=== PATIENT | female | born 1980 ===

== ENCOUNTER 2018-02-05 19:35 | Inpatient (IN) ==
[2018-02-05] MEDS ORDERED: CALCIUM CARBONATE Chewable 500mg TABLET PO PRN (19:47)
[2018-02-05] MEDS ORDERED: CARBOPROST 250 MCG/ML INJECTION IM PRN (19:47)
[2018-02-05] MEDS ORDERED: METHYLERGONOVINE 0.2 MG/ML INJECTION IM PRN (19:47)
[2018-02-05] MEDS ORDERED: MAG-AL + SIM ORAL LIQUID 30ml PO PRN (19:47)
[2018-02-05] MEDS ORDERED: ACETAMINOPHEN 500 MG TABLET PO PRN (19:47)
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
--- OUTSIDE RECORDS SUMMARY | 2018-02-05 19:47 | External Medical Summary | Continuity of Care Document ---
:1980 Author Organization [facility] [employer] [place] Address [address] [place], [place] [address] Phone Care Team Providers Name Role Phone Rudy Redmond MD Unavailable Unavailable Allergies, Adverse Reactions, Alerts Substance Reaction Severity Status No Known Drug Allergies Unknown Active Medications Medication Instructions Dosage Effective Dates (start - stop) Status Comments Drug Treatment Unknown Problems Condition Effective Dates (start - stop) Clinical Status Supervision of elderly multigravida, - third trimester 31 weeks gestation of - Supervision of elderly [...] second trimester 19 weeks gestation of - Supervision of elderly multigravida, - third trimester 33 weeks gestation of - Supervision of elderly multigravida, - third trimester Low Lying Placenta Nos Or W/out - Hemorrhage, Third Trimester Oth dis of bld/bld-form org/immun - mechnsm comp preg, 3rd tri 31 weeks gestation of - Maternal care for [...] Weeks Supervision of [place] In Womens elderly 7- Cynthia. Health [place], multigravida, 8 700 [address] third [email or web address] Medical 1522, weeks gestation of [facility], Max Lyle, 120, [id number], [place], [place], tel: [phone] [address] , [place]. tel: [phone] Ninfa We[place] Supervision of Nov-0 Tomas In Womens elderly 4-201 Mab[place]. 700 Health [place], multigravida, 8 Medical [address] third [email or web address] Center 1522, weeks gestation of Max L[place], 120, [place], [place], [id number], [place], [place] [id number] tel: , [place]. tel: [phone] Ninfa [place] Supervision of Nov-0 [place]arg[place]se In Womens Ultrasound elderly - [place]. Health [place], multigravida, 8 700 [address] Box third trimesterLow Medical 1522, Lying Placenta Nos [place], Or W/out Max Lyle, Hemorrhage, Third 120, [id number], TrimesterOth dis [place], [place] of bld/bld-form [place], tel: org/immun mechnsm [phone] 1967[address] comp preg, 3rd , [place]. tri31 weeks tel: gestation of [phone] Associates Micky Supervision of Dec-0 [place]arg[place]se In Womens elderly 6-201 Cynthia. Health [place], multigravida, 7 700 [address] second Medical 1522, trimesterLow Lying Center [place], Placenta Nos Or Max Lyle, W/out Hemorrhage, 120, [id number], Second [place], [place] TrimesterOth dis [place], tel:+ of bld/bld-form [phone] [address] org/immun mechnsm , [place]. comp preg,unsp tel: tri27 weeks [phone] gestation of Associates Micky Supervision of Nov-1 [place]se In Womens elderly 0-201 Cynthia. Health [place], multigravida, 7 700 [address] second [email or web address] Medical 1522, weeks gestation of [facility], Max Lyle, 120, [id number], [place], [place], tel:[phone] , [place]. tel: [phone] Ninfa We[place] Supervision of Aug- Varghese In Womens elderly 1-201 Cynthia. Health [place], multigravida, 7 700 [address] second [email or web address] Medical 1522, weeks gestation of [facility], Max Lyle, 120, , [place], [place], tel:[phone] , [place]. tel: [phone] Ninfa [place] Supervision of Aug- Varghese In Womens Ultrasound elderly 1-201 Cynthia. Health [place], multigravida, 7 700 [address] second Medical 1522, trimesterMaternal [facility], care for excess Max Lyle, growth, 120, [id number], second tri, unsp19 [place], [place] weeks gestation of [place], tel: [phone] [address] , [place]. tel: [phone] Ninfa [place] Maternal care for Sep-2 Varghese In Womens excess 7-201 Cynthia. Health [place], growth, second 7 700 PO Box tri, [email or web address] weeks Medical 1522, gestation of [facility], Max Lyle, 120, [id number], [place], [place], tel:[phone] , [place]. tel: [phone] Ninfa We[place] Supervision of Aug- Varghese In Womens elderly 6-201 Cynthia. Health [place], multigravida, 7 700 PO Box first trimesterPap Medical 1522, Smear Screening, [facility], [id number] weeks Max Lyle, gestation of 120, [id number], [place], [place], tel: [phone] , [place]. tel: [phone] [facility] Jan- Foster In Womens 9-201 Tiff. [facility], [address] [place], 1522, [place], [place], [id number], , [place]. [place] tel: tel: [phone] Family History Family Member Diagnosis Age At [...] Unknown Payers Payer name Insurance type Covered alliance party ID Authorization(s) [facility] - [employer] [id number] Social History Type Description Quantity Date Captured Alcohol Use Details No Caffeine Use Details Unknown Tobacco Use Status Unknown Smoking Status Never smoker Vital Signs Date / Height Weight BMI Pulse Blood Temperature Respiratory Body Head BMI Time: Rate Pressure Rate Surface Circumference percentile Area 149.90 25.7 114/68 2018 lbs 3 mm[Hg] 1:46 kg/m PM eter (2) Chief Complaint And Reason For Visit Unknown Chief Complaint And Reason For Visit Reason For Referral Reason For Referral Unknown Plan Of Care Date Type Action Status Appointment Ruiz Ferguson BOOKED Future Order: Radiology Order OB Detailed Complete Ultrasound Ordered ([id number]) Future Order: Radiology Order Ultrasound OB Follow-up ([id number]) Ordered Date Type Problem Goal Intervention Status Start Date Unknown. History Of Present Illness Encounter Date Complaint History Of Present Illness This patient has no known history of present illness Functional Status Encounter Date Functional Assessment Cognitive Assessment Unknown Medications Administered Medication Instructions Dosage Effective Dates (start - stop) Status Comments Drug Treatment Unknown Instructions Date Instruction Additional Information Dec-06-2017 gestational glucose lab screening HIV and other [...]
--- OUTSIDE RECORDS SUMMARY | 2018-02-05 19:47 | External Medical Summary | Continuity of Care Document ---
:1980 Author Organization [facility] [employer] [facility] Address [address] [place], [place] [address] Phone Care Team Providers Name Role Phone Rudy Redmond MD Unavailable Unavailable Allergies, Adverse Reactions, Alerts Substance Reaction Severity Status No Known Drug Allergies Unknown Active Medications Medication Instructions Dosage Effective Dates (start - stop) Status Comments Drug Treatment Unknown Problems Condition Effective Dates (start - stop) Clinical Status Supervision of elderly multigravida, - first trimester [...] gestation of - Active Procedures Procedure Date Unknown Results Test Name Date and Time Measure Units Reference Range Abnormal Flag Comments Unknown Advance Directives Directive Yes / No Effective Date File Name Unknown Encounters Encounter Practice Location Reason(s) Diagnoses Date Provider Care Description For Visit Team Members Ninfa Weeks Dec-0 Varghese In Womens 7-201 Cynthia. Health [place], 7 700 [address] Medical 1522, [place], Max Lyle, 120, [id number], [place], [place], tel:[phone] , [place]. tel: [phone] Ninfa We[place] Supervision of Dec-0 Varghese In Womens elderly 6-201 Cynthia. Health [place], multigravida, 7 700 [address] second Medical 1522, trimesterLow Lying [facility], Placenta Nos Or Max Lyle, W/out Hemorrhage, 120, , Second [place], [place] TrimesterOth dis [place], tel: of bld/bld-form [phone] 196790 org/immun mechnsm , [place]. comp preg,unsp tel: tri27 weeks [phone] gestation of Associates Micky Supervision of Nov- Varghese In Womens elderly 0-201 Cynthia. Health [place], multigravida, 7 700 [address] second [email or web address] Medical 1522, weeks gestation of [facility], Max Lyle, 120, [id number], [place], [place], tel:+ [phone] , [place]. tel:[phone] Ninfa We[place] Supervision of Aug- Varghese In Womens elderly 1-201 Cynthia. Health [place], multigravida, 7 700 [address] Box second Medical 1522, weeks gestation of [facility], Max Lyle, 120, [id number], [place], [place], tel:+ [phone] , [place]. tel:[phone] Ninfa [place] Supervision of Aug- Varghese In Womens Ultrasound elderly 1-201 Cynthia. Health [place], multigravida, 7 700 PO Box second Medical 1522, trimesterMaternal [facility], care for excess Max Lyle, growth, 120, [id number], second tri, unsp19 [place], [place] weeks gestation of [place], tel:[phone] , [place]. tel:[phone] Ninfa [place] Maternal care for Sep- Varghese In Womens excess 7-201 Cynthia. Health [place], growth, second 7 700 PO Box tri, unsp17 weeks Medical 1522, gestation of [facility], Max Lyle, 120, [id number], [facility] [place], tel:+ [phone] , [place]. tel: [phone] Ninfa We[place] Supervision of Varghese In Womens elderly 6-201 Cynthia. Health [place], multigravida, 7 700 PO Box first trimesterPap Medical 1522, Smear Screening, [facility], [id number] weeks Max Lyle, gestation of 120, , [facility], tel: [phone] , [place]. tel: [phone] Ninfa [facility] Jan- Foster In Womens 9-201 Tiff. Health [place], 0 [address] [place], 1522, [facility], [place], [place], [id number] , , [place]. [place] tel: tel: [phone] Family History Family Member Diagnosis Age At [...] name Insurance type Covered republican ID Authorization(s) [facility] - [employer] [id number] Social History Type Description Quantity Date Captured Unknown Vital Signs Date / Height Weight BMI Pulse Blood Temperature Respiratory Body Head BMI Time: Rate Pressure Rate Surface Circumference percentile Area Unknown Chief Complaint And Reason For Visit Unknown Chief Complaint And Reason For Visit Reason For Referral Reason For Referral Unknown Plan Of Care Date Type Action Status Appointment Ruiz Ferguson BOOKED Appointment Ruiz Ferguson BOOKED Future Order: Radiology Order OB Detailed Complete Ultrasound Ordered ([id number]) Date Type Problem Goal Intervention Status Start [...]
--- OUTSIDE RECORDS SUMMARY | 2018-02-05 19:47 | External Medical Summary | Continuity of Care Document ---
:1980 Author Organization [facility] Address [address] [place], [place] [address] Phone Care Team Providers Name Role Phone [...] gestation of - Active Procedures Procedure Date Detailed Compled OB Ultrasound, Single Fetus Results Test Name Date and Time Measure Units Reference Range Abnormal Flag Comments Unknown Advance Directives Directive Yes / No Effective Date File Name Unknown Encounters Encounter Practice Location Reason(s) Diagnoses Date Provider Care Description For Visit Team Members Associates Micky Supervision of [place] In [facility] 1-201 Cynthia. [facility], multigravida, 7 700 [address] second [email or web address] Medical 1522, weeks gestation of [facility] Max [place], 120, [id number], Micky [place], tel:[phone] , [place]. tel: [phone] Ninfa Weeks Supervision of [place] In Womens Ultrasound elderly 1-201 Cynthia. [facility], multigravida, 7 700 [address] second Medical 1522, trimesterMaternal [facility] [place], care for excess Max Lyle, growth, 120, [id number], second tri, unsp19 [place], [place] weeks gestation of [place], tel: [phone] , [place]. tel: [phone] Ninfa Weeks Maternal care for Sep-2 [place] In Womens excess 7-201 Cynthia. Health [place], growth, second 7 700 PO Box tri, unsp17 weeks Medical 1522, gestation of [facility], Max Lyle, 120, [id number], [place], [place], tel: [phone] , [place]. tel: [phone] Ninfa Weeks Supervision of [place] In Womens elderly 6-201 Cynthia. [facility], multigravida, 7 700 [address] Box first trimesterPap Medical 1522, Smear Screening, [facility], Dpeawl00 weeks Max Lyle, gestation of 120, , [place], [place], tel: [phone] , [place]. tel: [phone] Ninfa [facility] Jan- Foster In Womens 9-201 Tiff. Health [place], [address] [place] 1522, [facility], [place], [place], [id number] , , [place]. [place] tel: tel: [phone] Family History Family Member Diagnosis Age At [...] Covered green party ID Authorization(s) Billy FORRESTER [id number] Social History Type Description Quantity Date Captured [...] Radiology Order OB Detailed Complete Ultrasound Ordered ([id number]) Date Type Problem Goal Intervention Status Start [...]
--- OUTSIDE RECORDS SUMMARY | 2018-02-05 19:47 | External Medical Summary | Continuity of Care Document ---
:1980 Author Organization [facility] Address [address] [place], [place] [address] Phone Care Team Providers Name Role Phone Rudy Redmond MD Unavailable Unavailable Allergies, Adverse Reactions, Alerts Substance Reaction Severity Status No Known Drug Allergies Unknown Active Medications Medication Instructions Dosage Effective Dates (start - stop) Status Comments Drug Treatment Unknown Problems Condition Effective Dates (start - stop) Clinical Status Supervision of elderly multigravida, - third trimester Encounter For Screening For - Streptococcus B 35 weeks gestation of - Supervision of elderly [...] Supervision of elderly multigravida, - third trimester Streptococcus B carrier state - complicating 36 weeks gestation of - Supervision of elderly multigravida, - third trimester Streptococcus B carrier state - complicating 37 weeks gestation of - Supervision of elderly multigravida, - third trimester 33 weeks gestation of - Supervision of elderly multigravida, - third trimester Low Lying Placenta Nos Or W/out - Hemorrhage, Third Trimester Oth dis of bld/bld-form org/immun - mechnsm comp preg, 3rd tri 31 weeks gestation of - Supervision of elderly multigravida, - third trimester 31 weeks gestation of - Maternal care for excess growth, - second tri, unsp 17 weeks gestation of - Active Procedures Procedure Date OB Visit No Charge Results Test Name Date and Time Measure Units Reference Range Abnormal Flag Comments Panel Description: STREPTOCOCCUS, GROUP B CULTURE STREPTOCOCCUS, GROUP SEE NOTE A STREPTOCOCCUS, GROUP B CULTURE B CULTURE 11:26:00 MICRO NUMBER: [id number] TEST STATUS: FINAL SPECIMEN SOURCE: VAGINAL/ANORECTAL SPECIMEN QUALITY: ADEQUATE RESULT: Group B Streptococcus isolated Beta-hemolytic Streptococci are predictably susceptible to penicillin and other beta-lactams. Susceptibility testing not routinely performed.REPORT COMMENT:FASTING:UNKNOWNTest performed at [facility] [id number] [place] [address]Ifcarkql: YANDY ROSADO DO,MPH Advance Directives Directive Yes / No Effective Date File Name Unknown Encounters Encounter Practice Location Reason(s) Diagnoses Date Provider Care Description For Visit Team Members Associates Micky Supervision of [place] In Womens elderly 5-201 [facility], multigravida, third 8 700 [address] trimesterStreptococ Medical 1522, cus B carrier [facility], complicating Max Lyle, [email or web address] weeks 120, [id number], gestation of [place], [place], tel:[phone] 1967[address] , [place]. tel:[phone] Ninfa Weeks Supervision of Feb-0 [place] In Womens elderly 8-201 Cynthia. Health [facility], multigravida, third 8 700 PO Box trimesterStreptococ Medical 1522, cus B carrier state [facility] [place], complicating Max Lyle, [email or web address] weeks 120, , gestation of [place], [place], tel:[phone] , [place]. tel:[phone] Ninfa Weeks Supervision of Feb-0 [place] In Womens elderly 1-201 Cynthia. Health [facility], multigravida, third 8 700 PO Box trimesterEncounter Medical 1522, For [facility] [place], Screening For Max Lyle, Streptococcus B35 120, [id number], weeks gestation of [place], [place], tel:[phone] , [place]. tel: [phone] Ninfa Weeks Supervision of Nov-1 [place] In Womens elderly 7-201 Cynthia. Health [facility], multigravida, third 8 700 [address] Box [email or web address] weeks Medical 1522, gestation of [facility], Max Lyle, 120, , [place], [place], tel:[phone] , [place]. tel: [phone] Ninfa Weeks Supervision of Bladimir-0 Tomas In Womens elderly 4-201 [place]. 700 Health [place], multigravida, third 8 Medical [address] Box [email or web address] weeks Center 1522, gestation of [place]yle, 120, [place], [place], [id number], [place], [place] [id number] tel:+ , [place]. tel: [phone] Ninfa Weeks Supervision of Bladimir-0 [place] In Womens Ultrasound elderly 4-201 Cynthia. Health [facility], multigravida, third 8 700 PO Box trimesterLow Lying Medical 1522, Placenta Nos Or [facility] [place], W/out Hemorrhage, Max Lyle, Third TrimesterOth 120, , dis of bld/bld-form [place], org/immun mechnsm [place], tel: comp preg, 3rd [phone] tri31 weeks , [place]. gestation of tel: [phone] Ninfa Weeks Supervision of Dec-0 [place] In Womens elderly 6-201 Cynthia. Health [facility], multigravida, 7 700 PO Box second trimesterLow Medical 1522, Lying Placenta Nos [facility], Or W/out Max Lyle, Hemorrhage, Second 120, [id number], TrimesterOth dis of [place], bld/bld-form [place], tel: org/immun mechnsm [phone] 196790 comp preg,unsp , [place]. tri27 weeks tel: gestation of [phone] Associates Micky Supervision of Nov-1 [place] In Womens elderly 0-201 Cynthia. Health [facility], multigravida, 7 700 [address] second [email or web address] Medical 1522, weeks gestation of [facility], Max Lyle, 120, , [place], [place], tel: [phone] , [place]. tel: [phone] Ninfa Weeks Supervision of Oct-1 [place] In Womens elderly 1-201 Cynthia. Health GATO, multigravida, 7 700 [address] second [email or web address] Medical 1522, weeks gestation of [facility], Max Lyle, 120, , [place], [place], tel: [phone] , [place]. tel: [phone] Ninfa Weeks Supervision of Oct-1 [place] In Womens Ultrasound elderly 1-201 Cynthia. [facility], multigravida, 7 700 [address] second Medical 1522, trimesterMaternal [facility], care for excess Max Lyle, growth, 120, [id number], second tri, unsp19 [place]eks, [place] weeks gestation of [place], tel: [phone] , [place]. tel: [phone] Ninfa Weeks Maternal care for Sep-2 [place] In Womens excess 7-201 Cynthia. Health GATO, growth, second tri, 7 700 PO Box [email or web address] weeks Medical 1522, gestation of [facility], Max Lyle, 120, [id number], [place], [place], tel: [phone] , [place]. tel: [phone] Associates Micky Supervision of [place] In Womens elderly 6-201 Cynthia. [facility], multigravida, first 7 700 PO Box trimesterPap Smear Medical 1522, Screening, [id number] [facility] [place], weeks gestation of Max Lyle [place], 120, [id number], [place], [place], tel: [phone] , [place]. tel: [phone] Associates [facility] Jan- Foster In Womens 9-201 Tiff. Health [facility], [address] [place], 1522, [place], [place], [place], [place], [id number] , , [place]. [place] tel: tel: [phone] Family History Family Member Diagnosis Age At [...] Unknown Payers Payer name Insurance type Covered constitution party ID Authorization(s) [facility] - [employer] [id number] Social History Type Description Quantity Date Captured Alcohol Use Details No Caffeine Use Details Unknown Tobacco Use Status Unknown Smoking Status Never smoker Vital Signs Date / Height Weight BMI Pulse Blood Temperature Respiratory Body Head BMI Time: Rate Pressure Rate Surface Circumference percentile Area 155.40 26.6 119/75 -2018 lbs 7 mm[Hg] 11:05 kg/m AM eter (2) .0 -2018 9 10:58 kg/m AM eter (2) 155.40 26.6 2018 lbs 7 11:03 kg/m AM eter (2) Chief Complaint And Reason For Visit Unknown Chief Complaint And Reason For Visit Reason For Referral Reason For Referral Unknown Plan Of Care Date Type Action Status Future Order: Radiology Order OB Detailed Complete Ultrasound Ordered ([id number]) Future Order: Radiology Order Ultrasound OB Follow-up ([id number]) Ordered Date Type Problem Goal Intervention Status [...]
--- OUTSIDE RECORDS SUMMARY | 2018-02-05 19:47 | External Medical Summary | Continuity of Care Document ---
:1980 Author Organization [facility] [employer] [facility] Address [address] [place], [place] [address] Phone Care Team Providers Name Role Phone [...] Cervix - 11 weeks gestation of - Active Procedures Procedure Date Pap Smear handling/transport No Charge Sonogram Initial OB Visit No Charge OB Panel With An HIV Venpnctr fngr/heel/ear stick routne Urine Culture Results Test Name Date and Time Measure Units Reference Range Abnormal Flag Comments Panel Description: OBSTETRIC PANEL WHITE BLOOD CELL 6.1 Thousand/uL 3.8-10.8 N COUNT 14:49:00 RED BLOOD CELL 4.19 Million/uL 3.80-5.10 N COUNT 14:49:00 HEMOGLOBIN 13.3 g/dL 11.7-15.5 N 14:49:00 HEMATOCRIT 37.6 % 35.0-45.0 N 14:49:00 MCV 89.7 fL 80.0-100.0 N 14:49:00 MCH 31.7 pg 27.0-33.0 N 14:49:00 MCHC 35.4 g/dL 32.0-36.0 N 14:49:00 RDW 13.3 % 11.0-15.0 N 14:49:00 PLATELET COUNT 139 Thousand/uL 140-400 L 14:49:00 MPV 9.7 fL 7.5-12.5 N 14:49:00 ABSOLUTE 4044 cells/uL 7795-2782 N NEUTROPHILS 14:49:00 ABSOLUTE 1556 cells/uL 850-3900 N LYMPHOCYTES 14:49:00 ABSOLUTE 421 cells/uL 200-950 N MONOCYTES 14:49:00 ABSOLUTE 61 cells/uL 15-500 N EOSINOPHILS 14:49:00 ABSOLUTE 18 cells/uL 0-200 N BASOPHILS 14:49:00 NEUTROPHILS 66.3 % N 14:49:00 LYMPHOCYTES 25.5 % N 14:49:00 MONOCYTES 6.9 % N 14:49:00 EOSINOPHILS 1.0 % N 14:49:00 BASOPHILS 0.3 % N 14:49:00 ANTIBODY SCREEN, NO ANTIBODIES N RBC W/REFL ID, 14:49:00 DETECTED Reference range TITER AND AG No antibodies detected This assay is a screening test for the detection of red blood cell antibodies. The test is not to be used for pretransfusion screening or for the medical management of an alloimmunized . ABO GROUP A 14:49:00 RH TYPE RH (D) 14:49:00 NEGATIVE RPR (DX) W/REFL NON-REACTIVE NON-REACTIV N TITER AND 14:49:00 E CONFIRMATORY TESTING HEPATITIS B NON-REACTIVE NON-REACTIV N SURFACE ANTIGEN 14:49:00 E RUBELLA ANTIBODY 2.44 index N Index (IGG) 14:49:00 Interpretation ----- <0.90 Not consistent with Immunity 0.90-0.99 Equivocal > or=1.00 Consistent with Immunity The presence of rubella IgG antibody suggests immunization or past or current infection withrubella virus.Test performed at [facility] [id number] [place] [address]Nuoxvhx r: YANDY ROSADO DO,MPH Panel Description: HIV 1/2 ANTIGEN/ANTIBODY,FOURTH GENERATION W/RFL HIV NON-REACTIVE NON-REACTIVE N HIV-1 antigen and HIV-1/HIV- 2 antibodies were AG/AB, 14:49:00 notdetected. There is no laboratory evidence of 4TH GEN HIVinfection. PLEASE NOTE: This information has been disclosed toyou from records whose confidentiality may beprotected by state law. If your state requires suchprotection, then the state law prohibits you frommaking any further disclosure of the informationwithout the specific written consent of the personto whom it pertains, or as otherwise permitted by law.A general authorization for the release of medical orother information is NOT sufficient for this purpose. For additional information please refer [email or web address]/ZCX542(This link is being provided for informational/educational purposes only.) The performance of this assay has not been clinicallyvalidated in patients less than 2 years old. REPORT COMMENT:FASTING:NOTest performed at [facility] [id number] [place] [id number]: YANDY ROSADO DO,MPH Panel Description: Bacteria identified in Urine by Culture CULTURE, URINE, 14:55:00 SEE NOTE CULTURE, URINE, ROUTINE ROUTINE MICRO NUMBER: [id number] TEST STATUS: FINAL SPECIMEN SOURCE: URINE SPECIMEN QUALITY: ADEQUATE RESULT: No GrowthREPORT COMMENT:RTest performed at [facility] [id number] [place] [id number]: YANDY ROSADO DO,MPH Panel Description: Pap Smear With HPV Reflex If ASCUS Document Advance Directives Directive Yes / No Effective Date File Name Unknown Encounters Encounter Practice Location Reason(s) Diagnoses Date Provider Care Team Description For Visit Members Ninfa Weeks Supervision of [place]arg[place] In Womens elderly -2016 Cynthia[address] [place] [address], multigravida, Medical [address], [facility] , LORAINE Cook, trimesterPap Max 120, [id number], Smear [place], [place] Screening, [place], tel:[phone] Wmvfdt35 weeks [id number], [address] gestation of [place]. tel:[phone] [facility] Foster In Womens -2010 Tiff. [facility], [address], [place], [place], [place], [place], [id number], [place], [id number], tel:[phone] [place]. [address] tel:[phone] Family History Family Member Diagnosis Age At [...] Insurance type Covered green party ID Authorization(s) [facility] [id number] Social History Type Description Quantity Date Captured Alcohol Use Details No Caffeine Use Details Unknown Tobacco Use Status Never smoked tobacco Smoking Status Never smoker Vital Signs Date / Height Weight BMI Pulse Blood Temperature Respiratory Body Head BMI Time: Rate Pressure Rate Surface Circumference percentile Area 130.70 22.4 120/72 2017 lbs 3 mm[Hg] 2:12 kg/m PM eter (2) Chief Complaint And Reason For Visit Unknown Chief Complaint And Reason For Visit Reason For Referral Reason For Referral Unknown Plan Of Care Date Type Action Status Appointment Ruiz Ferguson BOOKED Date Type Problem Goal Intervention Status Start [...] ultrasound influenza vaccine environmental / work hazards new ob handbook [facility] docs travel tobacco (ask, advise, assess, assist and arrange) alcohol illicit / recreational drugs use of any medications (including supplements, vitamins, herbs, OTC drugs) smoking counseling domestic violence seat belt use genetic testing Zika virus assessment & precautions
--- OUTSIDE RECORDS SUMMARY | 2018-02-05 19:47 | External Medical Summary | Continuity of Care Document ---
:1980 Author Organization [facility] [employer] [place] Address [address] [place], [place] [address] Phone Care Team Providers Name Role Phone [...] Members Associates Micky Supervision of [facility] In [facility]ida, 7 700 [address] second [email or web address] Medical 1522, weeks gestation of [facility] Max Lyle, 120, [id number], [place], [place], tel:+ [phone] , [place]. tel: [phone] Ninfa Weeks Supervision of Aug- [place]se In Womens elderly 1-201 Cynthia. Health [place], multigravida, 7 700 [address] second [email or web address] Medical 1522, weeks gestation of [facility], Max Lyle, 120, [id number], [place], [place], tel:+ [phone] , [place]. tel: [phone] Ninfa Weeks Supervision of Aug- [place] In Womens Ultrasound elderly 1- Cynthia. Health GATO, multigravida, 7 700 [address] second Medical 1522, trimesterMaternal [facility], care for excess Max Lyle, growth, 120, [id number], second tri, unsp19 [place], [place] weeks gestation of [place], tel:+ [phone] , [place]. tel: [phone] Ninfa We[place] Maternal care for Sep-2 Varghese In Womens excess - Cynthia. Health GATO, growth, second 7 700 PO Box tri, [email or web address] weeks Medical 1522, gestation of [facility], Max Lyle, 120, [id number], [place], [place], tel:[phone] , [place]. tel: [phone] Ninfa Weeks Supervision of Jun- [place] In Womens elderly 6-201 Cynthia. Health GATO, multigravida, 7 700 PO Box first trimesterPap Medical 1522, Smear Screening, [facility], [id number] weeks Max Lyle, gestation of 120, [id number], [place], [place], tel:[phone] , [place]. tel: [phone] Ninfa Krause Jan- Foster In Womens 9-201 Tiff. Health GATO, [address] [place], 1522, [place], [place], [place], [place], [id number], , [place]. [place] tel: tel: [phone] Family History Family Member Diagnosis Age At [...] type Covered republican ID Authorization(s) Billy Forte [id number] Social History Type Description Quantity Date Captured Alcohol Use Details No Caffeine Use Details Unknown Tobacco Use Status Unknown Smoking Status Never smoker Vital Signs Date / Height Weight BMI Pulse Blood Temperature Respiratory Body Head BMI Time: Rate Pressure Rate Surface Circumference percentile Area 145.70 25.0 107/70 lbs 1 mm[Hg] 9:53 kg/m AM eter (2) Chief Complaint And Reason For Visit Unknown Chief Complaint And Reason For Visit Reason For Referral Reason For Referral Unknown Plan Of Care Date Type Action Status Appointment Ruiz Ferguson BOOKED Future Order: Radiology Order OB Detailed Complete Ultrasound Ordered ([id number]) Date Type Problem Goal Intervention Status Start [...]
--- OUTSIDE RECORDS SUMMARY | 2018-02-05 19:48 | External Medical Summary | Continuity of Care Document ---
:1980 Author Organization [facility] Address [address] [place], [place] [address] Phone Care Team Providers Name Role Phone [...] gestation of - Active Procedures Procedure Date Ultrasnd preg uterus, flwup/repeat Results Test Name Date and Time Measure Units Reference Range Abnormal Flag Comments Unknown Advance Directives Directive Yes / No Effective Date File Name Unknown Encounters Encounter Practice Location Reason(s) Diagnoses Date Provider Care Description For Visit Team Members Ninfa Weeks Supervision of Nov-1 [place]se In Womens elderly - Cynthia. Health GATO, multigravida, 8 700 [address] third [email or web address] Medical 1522, weeks gestation of [facility], Max Lyle, 120, , [place], [place], tel:[phone] , [place]. tel: [phone] Ninfa We[place] Supervision of Bladimir-0 Tomas In Womens elderly - [place]. 700 Health GATO, multigravida, 8 Medical PO Box third [email or web address] Center 1522, weeks gestation of Max [place], 120, [place], [place], [id number], [place], [place] [id number] tel: , [place]. tel: [phone] Ninfa We[place] Supervision of Nov-0 Varg[place]se In Womens Ultrasound elderly [place]. Health [place], multigravida, 8 700 PO Box third trimesterLow Medical 1522, Lying Placenta Nos [facility], Or W/out Max Lyle, Hemorrhage, Third 120, [id number], TrimesterOth dis [place], [place] of bld/bld-form [place], tel:[phone] org/immun mechnsm [phone] 1967[address] comp preg, 3rd , [place]. tri31 weeks tel:[phone] gestation of [phone] Associates Micky Supervision of Dec-0 [place] In Womens elderly 6- Cynthia. Health [place], multigravida, 7 700 PO Box second Medical 1522, trimesterLow Lying [facility] [place], Placenta Nos Or Max Lyle, W/out Hemorrhage, 120, [id number], Second [place], [place] TrimesterOth dis [place], tel:[phone] bld/bld-form [phone] 1967[address] org/immun mechnsm , [place]. comp preg,unsp tel: tri27 weeks [phone] gestation of Associates Micky Supervision of Nov-1 [place] In Womens elderly 0-201 Cynthia. Health [place], multigravida, 7 700 PO Box second [email or web address] Medical 1522, weeks gestation of [facility], Max Lyle, 120, [id number], [place], [place], tel:[phone] , [place]. tel: [phone] Ninfa We[place] Supervision of Aug- V[place]hese In Womens elderly 1-201 Cynthia. Health GATO, multigravida, 7 700 [address] second [email or web address] Medical 1522, weeks gestation of [facility], Max Lyle, 120, , [place], [place], tel:+ [phone] , [place]. tel: [phone] Ninfa We[place] Supervision of Aug- Varg[place]se In Womens Ultrasound elderly 1-201 Cynthia. Health GATO, multigravida, 7 700 [address] Box second Medical 1522, trimesterMaternal [facility], care for excess Max Lyle, growth, 120, [id number], second tri, unsp19 [place], [place] weeks gestation of [place], tel: [phone] , [place]. tel: [phone] Ninfa We[place] Maternal care for Sep-2 Varghese In Womens excess 7-201 Cynthia. Health GAT[place], growth, second 7 700 PO Box tri, unsp17 weeks Medical 1522, gestation of [facility], Max Lyle, 120, [id number], [place], [place], tel:[phone] , [place]. tel: [phone] Ninfa Weeks Supervision of Aug- Varghese In Womens elderly 6-201 Cynthia. Health GAT[place], multigravida, 7 700 PO Box first trimesterPap Medical 1522, Smear Screening, [facility], [id number] weeks Max Lyle, gestation of 120, , [place], [place], tel: [phone] , [place]. tel: [phone] [facility] Jan- [place] In Womens 9-201 Tiff. [facility], [address] [place], 1522, [place], [place], [place], [place], [id number], , [place]. US tel: tel: [phone] Family History Family Member Diagnosis Age At [...] Insurance type Covered constitution party ID Authorization(s) [facility] Aena [id number] Social History Type Description Quantity Date Captured Unknown Vital Signs Date / Height Weight BMI Pulse Blood Temperature Respiratory Body Head BMI Time: Rate Pressure Rate Surface Circumference percentile Area Unknown Chief Complaint And Reason For Visit Unknown Chief Complaint And Reason For Visit Reason For Referral Reason For Referral Unknown Plan Of Care Date Type Action Status Appointment Ruiz eFrguson BOOKED Future Order: Radiology Order Ultrasound OB Follow-up ([id number]) Ordered Future Order: Radiology Order OB Detailed Complete Ultrasound Ordered ([id number]) Date Type Problem Goal Intervention Status Start [...]
--- OUTSIDE RECORDS SUMMARY | 2018-02-05 19:48 | External Medical Summary | Continuity of Care Document ---
:1980 Author Organization [facility] Address [address] [place], [place] [address] Phone Care Team Providers Name Role Phone [...] Team Description For Visit Members Ninfa Weeks Varghese In Cynthia. [facility] GATO Medical [address], [place], Max 120, [id number], We[place], [facility], tel:[phone], [address] [place]. tel:[phone] Ninfa Weeks Supervision of Varghese In [facility] elderly -2016 Cynthia. 700 Health moo HOSKINSgraviyvrose, Medical [address], [email or web address] Center [place], trimesterPap Max 120, [id number], Smear [facility] Screening, [place], tel:[phone] Oizhfy32 weeks [id number], [address] gestation of [place]. tel:[phone] [facility] Tiff. [place], [address], [place], [place]AINE, [place], [id number], [place], [place] [id number], tel:[phone] [place]. [address] tel:[phone] Family History Family Member Diagnosis Age At [...] Unknown Payers Payer name Insurance type Covered democrat ID Authorization(s) Billy Forte [id number] Social History Type Description Quantity Date Captured [...]
--- OUTSIDE RECORDS SUMMARY | 2018-02-05 19:48 | External Medical Summary | Continuity of Care Document ---
:1980 Author Organization [facility] Allergies Active Description Code Type Severity Reaction Onset Reported/ Identified Relationship Clinical to Patient Status Yes No Known 37809 3 N/A N/A Drug 0 Allergies Medications There is no data. Problems Date Dx Coded Attending Type Code Diagnosis Diagnosed By 09/03/2017 Cynthia Varghese O09.522 Supervision of elderly multigravida, second trimester 09/03/2017 Cynthia Varghese O36.62x0 Maternal care for excess growth, second tri, unsp 09/03/2017 Cynthia Varghese Z3A.19 19 weeks gestation of 11/27/2017 Cynthia Varghese O09.523 Supervision of elderly multigravida, third trimester 11/27/2017 Cynthia Varghese O44.43 Low Lying Placenta Nos Or W/out Hemorrhage, Third Trimester 11/27/2017 Cynthia Varghese O99.113 Oth dis of bld/bld-form org/immun mechnsm comp preg, 3rd tri 11/27/2017 Cynthia Varghese Z3A.31 31 weeks gestation of Procedures Code Description [place] [address] OB US, 09/03/2017 DETAILED, SNGL FETUS [id number] Ultrasnd 11/27/2017 preg uterus, flwup/repeat Results There is no data. Encounters ACCT No. Visit Discharge Status Pt. Type Provider Facility Loc./Unit Complaint Date/Time [id number] 01/20/2018 01/20/2018 [facility] Outpatient Varghese, 09:45:00 23:59:59 Cynthia Maya [id number] 01/08/2018 01/08/2018 [facility] Outpatient Varghese, 10:15:00 23:59:59 Cynthia Maya [id number] 01/01/2018 01/01/2018 [facility] Outpatient Varghese, 10:35:00 23:59:59 Cynthia Maya [id number] 12/25/2017 12/25/2017 [facility] Out[facility] Varghese, 11:00:00 23:59:59 Cynthia Maya [id number] 12/10/2017 12/10/2017 [facility] Outpatient [facility]arg[facility]se, 14:00:00 23:59:59 Cynthia Maya [id number] 11/27/2017 11/27/2017 [facility] Outpatient [facility], 13:40:00 23:59:59 Maurisio Murphy [id number] 11/27/2017 11/27/2017 [facility] Outpatient [facility]arg[facility]se, 13:15:00 23:59:59 Cynthia Maya [id number] 10/30/2017 10/30/2017 [facility] Outpatient [facility]arg[facility]se, 11:43:00 23:59:59 Cynthia Maya [id number] 10/29/2017 10/29/2017 [facility] Outpatient Varghese, 13:25:00 23:59:59 Cynthia Maya [id number] 10/03/2017 10/03/2017 [facility] Outpatient Varg[facility]se, 09:50:00 23:59:59 Cynthia Maya [id number] 09/03/2017 09/03/2017 [facility] Outpatient Varg[facility]se, 13:15:00 23:59:59 Cynthia Maya [id number] 09/03/2017 09/03/2017 [facility] Outpatient Varghese, 12:45:00 23:59:59 Cynthia Maya [id number] 08/20/2017 08/20/2017 [facility] Outpatient Varg[facility]se, 14:30:00 23:59:59 Cynthia Maya [id number] 07/16/2017 07/16/2017 [facility] Outpatient Varghese, 14:00:00 23:59:59 Cynthia Maya [id number] 07/09/2017 07/09/2017 [facility] Outpatient Varghese, 14:00:00 23:59:59 Cynthia Maya [id number] 07/26/2015 07/26/2015 [facility] Outpatient [place], 09:45:00 23:59:59 Alina Savage [id number] 07/20/2015 07/20/2015 [facility] Outpatient [place], 11:30:00 23:59:59 Alina Savage [id number] 07/13/2015 07/13/2015 [facility] Out[facility] [place], 11:00:00 23:59:59 Alina Savage [id number] 02/03/2018 Document 13:30:00 Registration
[2018-02-05] MEDS ORDERED: ONDANSETRON 4 MG/2 ML INJECTION IVP PRN ×2 (19:57→21:43)
[2018-02-05] MEDS: LR 1,000 ML IV PRN ×2 (20:07→21:11)
[2018-02-05] MEDS ORDERED: AMPICILLIN 2 GM in NS 100 ML IV ONE (20:15)
[2018-02-05 20:22] VITALS: BMI 26.9
[2018-02-05] MEDS ORDERED: D5LR 1,000 ML IV SCH (21:15)
[2018-02-05] MEDS ORDERED: NALOXONE 0.4 MG/ML INJECTION IVP PRN (21:43)
[2018-02-05] MEDS ORDERED: ROPIVACAINE 1% 10MG/ML INJ 200 MG, SUFentanil 50 MCG in NS 100 ML EPI PRN (21:43)
[2018-02-05] MEDS ORDERED: DiphenhydrAMINE 50 MG/ML INJECTION IVP PRN (21:43)
--- NOTE | 2018-02-05 21:43 | Anesthesia Preoperative Report ---
Anesthesia Epidural/Spinal Rec - Date and Time Date: 02/05/18 Procedure: Labor Epidural Plan: Epidural - Vital Signs Vital Signs: Temperature 97.7 F 02/05/18 20:22 Pulse Rate 56 L 02/05/18 20:22 Respiratory Rate 12 02/05/18 20:22 Blood Pressure 125/71 02/05/18 20:22 Pulse Oximetry 100 02/05/18 20:22 /Para: P:5 - Medictaions & Allergies Inpatient Medications: Current Medications Acetaminophen (Tylenol) 500 - 1,000 mg PO Q4H PRN PRN Reason: Pain Al Hydroxide/Mg Hydroxide (Maalox Plus) 30 ml PO Q3H PRN PRN Reason: Indigestion Calcium Carbonate (Tums) 500 - 1,000 mg PO Q2H PRN PRN Reason: Indigestion Carboprost Tromethamine (Hemabate) 250 mcg IM O PRN PRN Reason: .Downtime Lactated Ringer's (Lactated Ringers) 1,000 mls @ 999 mls/hr IV .Q1H1M PRN Last Admin: 02/05/18 21:11 Dose: 999 mls/hr Ampicillin Sodium 2 gm/ Sodium (Chloride) 100 mls @ 200 mls/hr IV O ONE Stop: 02/05/18 20:44 Last Admin: 02/05/18 20:12 Dose: 200 mls/hr Ampicillin Sodium 1 gm/ Sodium (Chloride) 100 mls @ 200 mls/hr IV Q4H JUN Dextrose/Lactated Ringer's (Dextrose 5%-Lactated Ringers) 1,000 mls @ 125 mls/ hr IV .Q8H JUN Last Admin: 02/05/18 21:17 Dose: 125 mls/hr Methylergonovine Maleate (Methergine) 0.2 mg IM O PRN Misoprostol (Cytotec) 800 mcg DC ONCE PRN Ondansetron HCl (Zofran) 4 mg IVP Q6H PRN PRN Reason: Nausea &/or vomiting Allergies/Adverse Reactions: Allergies Allergy/AdvReac Type Severity Reaction Status Date / Time NKDA Allergy Unknown Uncoded 07/26/15 06:18 - Home Medications Home Medications: Home Medications Medication Instructions Recorded Confirmed Type Hydrocodone/Acetaminophen 1 - 2 tab PO Q4H PRN #30 tab 07/27/15 Rx [Hydrocodon-Acetaminophen 5-325] Ibuprofen 800 mg PO Q8H PRN #30 tab 07/27/15 Rx - Medical History Respiratory: DENIES: Asthma, Bronchitis, Chronic Obstructive Pulmonary Disease (COPD), Dyspnea, Orthopnea, Pulmonary Embolism, Pneumonia, Upper Respiratory Infection, Pulmonary Edema, Sleep Apnea, Tuberculosis, Other Cardiovascular: DENIES: Abnormal EKG, Angina, Arrhythmia, Congestive Heart Failure, Coronary Artery Disease, Heart Murmur, Hypertension, Hypotension, High Cholesterol, Myocardial Infarction, Rheumatic Fever, Valvular Heart Disease, Other Gastrointestional: DENIES: Obstructive Bowel, Hepatitis, Cirrhosis, Nausea or Vomiting Present, Gastroesophageal Reflux Disease, Gastrointestinal Bleeding, Hiatal Hernia, Ulcer , Morbid Obesity, Other Neuro/Musculoskeletal: Denies: HX.MS.OSAR, Back Problems, Cerebrovascular Accident, Depression, Headaches, Loss of Consciousness, Muscle Weakness, Neuromuscular Disorder, Paralysis, Paresthesia, Syncope, Seizures, Other Renal/Endocrine: DENIES: Diabetes Mellitus Type 1, Diabetes Mellitus Type 2, Renal Failure, Dialysis, Thyroid Disease, Weight Loss, Weight Gain, Other Other History: Reports: Now - Surgical History Reproductive Surgery/Treatment: DENIES: Section Anesthesia Reactions: None Hx Family Anesthesia Reaction: No History of Motion Sickness: No - Social History Smoking Status: Never smoker Substance Use Type: does not use - Pertinent Findings Lab Data: CBC and BMP 02/05/18 20:06 - Airway Assessment Mallampati Score: II TMD: 3 Fingerbreadths Neck Extension: good Overall Assessment: may be difficult intubation - ASA ASA Score: 2 - Discussion Discussion: Discussed risks/options/alternatives of anesthesia and questions answered. Patient consents. Nursing pain assessment noted. Anesthesia Discussion: spouse Attestation Statement: Prior to the delivery of any anesthetic medication, I examined the patient, developed the plan, obtained the patient's consent and discussed the risk and benefits of the procedure with the patient/guardian.
[2018-02-06] MEDS: AMPICILLIN 1 GM in NS 100 ML IV SCH ×2 (00:03→02:20)
[2018-02-06] MEDS ORDERED: MAG-AL + SIM ORAL LIQUID 30ml PO PRN (01:06)
[2018-02-06] MEDS ORDERED: ACETAMINOPHEN 500 MG TABLET PO PRN (01:06)
[2018-02-06] MEDS ORDERED: HYDROCODONE/APAP 5mg/325mg TABLET PO PRN (01:06)
[2018-02-06] MEDS ORDERED: TETANUS, DIPHTHERIA, a PERTUSSIS (Tdap) 0.5ml INJECTION IM ONE (01:06)
[2018-02-06] MEDS ORDERED: HYDROCORTISONE 2.5% CREAM 30gm RECTALLY PRN (01:06)
[2018-02-06] MEDS ORDERED: CALCIUM CARBONATE Chewable 500mg TABLET PO PRN (01:06)
[2018-02-06] MEDS ORDERED: RHOPHYLAC - PHARMACY CONSULT MC ONE (01:06)
[2018-02-06] MEDS ORDERED: OXYTOCIN DRIP 30 UNIT/500 ML ML IV SCH (01:06)
[2018-02-06] MEDS ORDERED: DiphenhydrAMINE 25 MG CAPSULE PO PRN (01:06)
[2018-02-06] MEDS: IBUPROFEN 800 MG TABLET PO SCH ×2 (01:11→23:51)
--- NOTE | 2018-02-06 07:07 | Labor and Delivery Note ---
DATE OF DELIVERY: 02/06/2018 This is a delivery note for a patient of Dr. Easton. Ms. Ferguson progressed well in first stage of labor. She began to push at the complete and +3 presentation. She pushed for one contraction, delivering the head in the OA presentation. There was a snug nuchal cord x 2 I was not able to reduce. It was doubly clamped and cut and then with one further push baby was delivered in total. Baby was placed on mother's abdomen and bulb suctioned. This is a liveborn male with Apgars of 8/9. After a few moments the placenta delivered spontaneously, intact. It had a normal configuration and normal-appearing three-vessel cord. Perineum was intact. There were no lacerations. There was very minimal blood - I called it 50 ml. At the time of this dictation mother and baby are doing well. [facility]
--- NOTE | 2018-02-06 07:29 | Pharmacy Consult ---
Pharmacy Consult-Rhophylac - Laboratory Information 02/06/18 02/06/18 01:06 05:50 Hgb /Adult Ratio Cancelled RhIG Candidate? Not a candidate - Consult Information Rh FACTOR CONSULT: Mother Blood Type = A negative Child Blood Type = A negative Based on mother and child blood types, patient is not a candidate for Rho D Immunoglobulin. Thank you, Marta Cody [facility]
[2018-02-06] MEDS ORDERED: DOCUSATE CALCIUM 240 MG CAPSULE PO SCH (09:00)
[2018-02-06] MEDS ORDERED: PRENATAL VITAMIN TABLET PO SCH (09:00)
--- NOTE | 2018-02-06 10:19 | Anesthesia Postoperative Note ---
- Date and Time Date: 02/06/18 Time: 10:16 - Status Patient Participated in Evaluation: Patient Participated in Person Vital Signs: Temperature 97.7 F 02/06/18 09:30 Pulse Rate 59 L 02/06/18 09:30 Respiratory Rate 18 02/06/18 09:30 Blood Pressure 117/74 02/06/18 09:30 Pulse Oximetry 99 02/06/18 09:30 Respiratory Function: Airway Patent, Regular Respirations Cardiovascular Function: Regular Pulse Mental Status: Alert and Oriented Pain Intensity: 0 Hydration: Taking PO Fluids Complications During Recover: None Apparent - Follow-Up Instructions Instructions: Per Surgeon
--- NOTE | 2018-02-07 12:53 | OB/GYN Progress Note ---
OB-PP Progress Note - General PPD1 Maternal Group B Strep: Positive Maternal blood type: A- Maternal Rubella Status: Immune - Subjective Date: 02/07/18 Lochia: Minimal Pain: controlled Voiding: voiding Nausea or Vomiting Present: No - Objective Vital Signs: Last Vital Signs Temp 97.7 F 02/07/18 05:00 Pulse 49 L 02/07/18 05:00 Resp 18 02/07/18 05:00 BP 105/64 02/07/18 05:00 Pulse Ox 98 02/07/18 05:00 Urine Output: good General: alert and oriented Cardiovascular: regular rate,rhythm Respiratory: non-labored Abdomen: fundus firm, non-tender Incision: normal - Assessment Assessment: SP, , GBS positive - Plan Plan: routine care, discharge home
[2018-02-07 14:13] VITALS: TEMP 97.6; O2SAT 99
[2018-02-07 17:15] VITALS: BP 135/78; PULSE 52; RESP 14
== END 2018-02-07 20:35 | disposition home or self-care (01) | DRG 774 ==
LOC: OBOBS 19:40 → MC 19:43
PROVIDERS: ADMIT Obstetrics & Gynecology; ATTEND Obstetrics & Gynecology